=== PATIENT | male | born 1995 | race Caucasian/White ===

== ENCOUNTER → 2017-01-19 | Outpatient (CLI) | payer BC, OTHER ==
[~2017-01-19] MED LIST: OMEP20TA PO; SERT-234 PO
== END | disposition home or self-care (01) ==
LOC: C.RDSM 08:30
PROVIDERS: ATTEND Orthopaedic Surgery Sports Medicine
DX: M79.671 Pain in right foot (principal)

== ENCOUNTER → 2017-04-13 | Outpatient (CLI) | payer BC, OTHER ==
--- NOTE | 2017-04-13 12:03 | DIAGNOSTIC IMAGING REPORT ---
RIGHT FOOT MIN 3 VIEWS CLINICAL HISTORY: Persistent right great toe pain. COMPARISON: Right foot radiographs January 19, 2017. FINDINGS: Tarsometatarsal joints are intact. There is no acute fracture. Joint spaces are preserved. There are no erosions. There is moderate soft tissue swelling along the medial aspect of the right first metatarsophalangeal joint. This is increased since prior exam. No osseous lesion is identified. IMPRESSION: 1. Moderate nonspecific soft tissue swelling along the medial aspect of the right first metatarsophalangeal joint. 2. Otherwise, unremarkable right foot radiographs. Electronically signed by: Bandar Gonzales M.D. 04/13/2017 12:01 PM Dictated Date/Time: 04/13/2017 11:57 AM
== END | disposition home or self-care (01) ==
LOC: C.RDSM 13:29
PROVIDERS: ATTEND Family Medicine
DX: M79.671 Pain in right foot (principal); M79.89 Other specified soft tissue disorders

== ENCOUNTER → 2017-05-03 | Outpatient (CLI) | payer BC, OTHER ==
--- NOTE | 2017-05-03 16:13 | DIAGNOSTIC IMAGING REPORT ---
RIGHT FOOT MIN 3 VIEWS CLINICAL HISTORY: 21 years-old Male presenting with RIGHT 5TH METATARSAL STRESS FX Right. TECHNIQUE: Frontal, oblique, and lateral views of the right foot were obtained. COMPARISON: 04/13/2017. FINDINGS: No acute fracture, malalignment, or radiopaque foreign body. No sclerosis or other abnormality within the fifth metatarsal to suggest stress reaction. No significant soft tissue swelling. IMPRESSION: No acute osseous injury of the foot. Electronically signed by: Moses Mittal M.D. 05/03/2017 4:12 PM Dictated Date/Time: 05/03/2017 4:11 PM
== END | disposition home or self-care (01) ==
LOC: C.RDSM 15:39
PROVIDERS: ATTEND Family Medicine Sports Medicine
DX: M77.41 Metatarsalgia, right foot (principal); M84.374A Stress fracture, right foot, initial encounter for fracture; X58.XXXA Exposure to other specified factors, initial encounter

== ENCOUNTER 2017-06-26 02:02 | Emergency (ER) | payer BC, OTHER ==
[~2017-06-26] VITALS: Ht 185.4 cm; Wt 87.4 kg
[2017-06-26 02:03] VITALS: TEMP 36.7; Ht 185.4 cm; Wt 87.4 kg
[2017-06-26] MEDS ORDERED: GI COCKTAIL PO STA (02:20)
--- NOTE | 2017-06-26 02:23 | EMERGENCY ROOM VISIT NOTE ---
History Report prepared by Heavenly: Venkat Marques Under the Supervision of: Dr. Virgilio Blackwell M.D. First contact with patient: 02:06 Chief Complaint: CHEST PAIN Stated Complaint: CHEST PAIN History of Present Illness The patient is a 22 year old male who presents to the Emergency Room with complaints of persistent mid-chest pain that started around an hour ago. He says that he woke up with the pain, and the pain was severe and went into his back. He states that the pain is slightly better now sitting here. The patient notes that he got nervous about the pain, and got a bit nauseous. He says that he has never had anything like this before. The patient adds that he takes Sertraline, and it sometimes upsets his stomach, but never anything like this before. He says that he took 3 Tums prior to arrival. He adds that he ate subs for dinner, and took Creatinine today for the first time in a week and a half. He says that he had 3 or 4 beers yesterday, and 1 beer tonight. The patient denies any vomiting, injury, falls, or metallic tastes in his mouth. Source of History: patient Onset: Around an hour ago Position: chest Symptom Intensity: severe Timing: other (persistent) Associated Symptoms: + nausea, + back pain, No vomiting Note: Associated symptoms: Got nervous. Denies injury, falls, metallic tastes in mouth. Review of Systems See HPI for pertinent positives & negatives. A total of 10 systems reviewed and were otherwise negative. Past Medical & Surgical Medical Problems: (1) On SSRI therapy Surgical Problems: (1) H/O arthroscopy of left knee Family History FHx: heart disease Social History Smoking Status: Never Smoker Marital Status: single Housing Status: lives with roommate Occupation Status: student Current/Historical Medications Scheduled Omeprazole (Omeprazole), 1 TAB PO DAILY Sertraline (Zoloft), 100 MG PO DAILY Allergies Coded Allergies: No Known Allergies (Unverified , 06/26/17) Physical Exam Vital Signs Date Time Temp Pulse Resp B/P (MAP) Pulse Ox O2 Delivery O2 Flow Rate FiO2 06/26/17 04:08 68 16 97 06/26/17 04:01 121/67 06/26/17 03:53 56 16 97 06/26/17 03:38 61 20 96 06/26/17 03:31 127/75 9/18/17 03:23 54 16 96 06/26/17 03:18 116/73 06/26/17 03:07 55 17 96 06/26/17 02:52 56 17 96 06/26/17 02:37 60 15 96 06/26/17 02:32 61 14 97 Room Air 06/26/17 02:31 126/84 06/26/17 02:21 61 06/26/17 02:14 138/79 06/26/17 02:03 36.7 62 20 169/83 98 Room Air Physical Exam GENERAL: Patient is anxious appearing and in minimal distress. HEENT: No acute trauma, normocephalic atraumatic, mucous membranes moist, no nasal congestion, no scleral icterus. NECK: No stridor, no adenopathy, no meningismus, trachea is midline. LUNGS: No dyspnea. Clear to auscultation and equal bilaterally. No wheeze, no rhonchi. HEART: Regular rate and rhythm. No murmurs, rubs, gallops appreciated. ABDOMEN: Soft, nontender, bowel sounds positive, no masses appreciated, no peritonitis. BACK: No midline tenderness, no CVA tenderness EXTREMITIES: Normal motion all extremities, no cyanosis, no edema. NEUROLOGIC: Alert and oriented, no acute motor or sensory deficits, no focal weakness, cranial nerves grossly intact. SKIN: No rash, no jaundice, no diaphoresis. Medical Decision & Procedures ER Provider Diagnostic Interpretation: X ray results are stated below per my interpretation: Chest: 1 view: No infiltrate, no effusion, normal cardiac border. Laboratory Results 06/26/17 02:10 Red Blood Count 5.09, Mean Corpuscular Volume 88.8, Mean Corpuscular Hemoglobin 31.2, Mean Corpuscular Hemoglobin Concent 35.2, Mean Platelet Volume 9.5, Neutrophils (%) (Auto) 49.4, Lymphocytes (%) (Auto) 32.8, Monocytes (%) (Auto) 7.0, Eosinophils (%) (Auto) 9.7, Basophils (%) (Auto) 0.6, Neutrophils # (Auto) 4.04, Lymphocytes # (Auto) 2.68, Monocytes # (Auto) 0.57, Eosinophils # (Auto) 0.79, Basophils # (Auto) 0.05 06/26/17 02:10 Test 06/26/17 02:10 White Blood Count 8.17 K/uL (4.8-10.8) Red Blood Count 5.09 M/uL (4.7-6.1) Hemoglobin 15.9 g/dL (14.0-18.0) Hematocrit 45.2 % (42-52) Mean Corpuscular Volume 88.8 fL (80-100) Mean Corpuscular Hemoglobin 31.2 pg (25-34) Mean Corpuscular Hemoglobin Concent 35.2 g/dl (32-36) Platelet Count 215 K/uL (130-400) Mean Platelet Volume 9.5 fL (7.4-10.4) Neutrophils (%) (Auto) 49.4 % Lymphocytes (%) (Auto) 32.8 % Monocytes (%) (Auto) 7.0 % Eosinophils (%) (Auto) 9.7 % Basophils (%) (Auto) 0.6 % Neutrophils # (Auto) 4.04 K/uL (1.4-6.5) Lymphocytes # (Auto) 2.68 K/uL (1.2-3.4) Monocytes # (Auto) 0.57 K/uL (0.11-0.59) Eosinophils # (Auto) 0.79 K/uL (0-0.5) Basophils # (Auto) 0.05 K/uL (0-0.2) RDW Standard Deviation 39.0 fL (36.4-46.3) RDW Coefficient of Variation 12.2 % (11.5-14.5) Immature Granulocyte % (Auto) 0.5 % Immature Granulocyte # (Auto) 0.04 K/uL (0.00-0.02) D-Dimer < 190 ug/L FEU (0-500) Anion Gap 7.0 mmol/L (3-11) Est Creatinine Clear Calc Drug Dose 100.7 ml/min Estimated GFR () 89.8 Estimated GFR (Non- 77.5 BUN/Creatinine Ratio 17.2 (10-20) Calcium Level 8.8 mg/dl (8.5-10.1) Total Bilirubin 0.3 mg/dl (0.2-1) Direct Bilirubin mg/dl (0-0.2) Aspartate Amino Transf (AST/SGOT) U/L (15-37) Alanine Aminotransferase (ALT/SGPT) 36 U/L (12-78) Alkaline Phosphatase 54 U/L (45-117) Troponin I < 0.015 ng/ml (0-0.045) Total Protein 7.2 gm/dl (6.4-8.2) Albumin 3.9 gm/dl (3.4-5.0) Lipase 110 U/L (73-393) Laboratory results as reviewed by me. Medications Administered Medications (Trade) Dose Ordered Sig/Nadya Route Start Time Stop Time Status Last Admin Dose Admin Miscellaneous Medication (Gi Cocktail) 24 ml NOW STAT PO 06/26/17 02:20 06/26/17 02:22 DC 06/26/17 02:20 24 ML Ranitidine HCl (zANTac SYRUP) 150 mg NOW ONCE PO 06/26/17 02:30 06/26/17 02:31 DC 06/26/17 02:30 150 MG Sodium Chloride 1,000 ml @ 999 mls/hr Q1H1M STAT IV 06/26/17 03:27 06/26/17 04:27 DC 06/26/17 03:41 999 MLS/HR ECG Indication: chest pain Rate (beats per minute): 59 Rhythm: sinus bradycardia Findings: no acute ischemic change, no ectopy ED Course 0216: The patient was evaluated in room A10. A complete history and physical exam was performed. 0220: Ordered GI Cocktail 24 ml PO. 0230: Ordered Zantac Syrup 150 mg PO. 0327: Ordered NSS 1000 ml @ 999 mls/hr IV. 0330: I reevaluated the patient and he is feeling better. He requested that I call his father who is an internal medicine doctor in [facility]. 0340: I discussed the patient with his father who agrees with the plan for fluid hydration and outpatient follow-up, in addition to repeat kidney function testing. 0405: I reevaluated the patient and he is resting comfortably. The patient verbally expressed understanding and agreement of the treatment plan. The patient will be discharged. Medical Decision Differential: Gastritis/PUD, Pericarditis, Cholecystitis, Gallbladder disfunction, Hepatic Disfunction, Pancreatitis, ACS, Aortic Pathology, amongst other pathologies entertained. 22 yr old male arrives with complaint of what sounds much like reflux symptoms. Beer, hoagies, and work-up supplements likely cause and he notes he has mild symptoms like this in past. Much improved with GI cocktail as well. CXR clear , ekg normal, trop negative. No clear evidence of pericarditis. No muscle aches to go with rhabdo though he is a bit dehydrated with mild Cr elevation for age. Given IV fluids for this and Case Management will help set up outpatient follow up for repeat labs in 1 week. Hemolyzed K but I feel reasonable that symptoms are not due to hyperKalemia. Lipase and LFTs normal. No evidence this would be aortic in nature. Symptoms not consistent with GB disease. Reviewed symptoms requiring return. Will start on PPI. Medication Reconcilliation Current Medication List: was personally reviewed by me Blood Pressure Screening Patient's blood pressure: Normal blood pressure Impression Primary Impression: Substernal discomfort Additional Impressions: GERD (gastroesophageal reflux disease) Dehydration Renal insufficiency Scribe Attestation The scribe's documentation has been prepared under my direction and personally reviewed by me in its entirety. I confirm that the note above accurately reflects all work, treatment, procedures, and medical decision making performed by me. Departure Information Dispostion Home / Self-Care Prescriptions Omeprazole (OMEPRAZOLE) 20 Mg Tab 1 TAB PO DAILY for 30 Days, #30 TAB 1 Refill Prov: Virgilio Blackwell M.D. 06/26/17 Referrals Michael Shaffer M.D. (PCP) Patient Instructions My [facility] Additional Instructions Your kidney function was mildly elevated consistent with some renal insufficiency: BUN 22, Cr 1.3. Continue to keep well hydrated. Avoid NSAID medications (ibuprofen, advil, aleve, motrin, etc). Tylenol is fine. Avoid spicy foods, alcohol, tomato based products, chocolate, and coffee/energy drinks. You should stop taking any lifting supplements for the mean time as these can worsen kidney function. Return if rapid worsening pain, fevers, difficulty breathing, passing out or other concerns. Use anti-acid (omeprazole 20mg tab) twice daily for next 10 days, then once daily. Follow up with Clinic in 1 week for repeat kidney function testing. Problem Qualifiers
[2017-06-26] MEDS ORDERED: ALUMINUM/MAGNESIUM SUSP 30 ML UDC ONE (02:27)
[2017-06-26] MEDS ORDERED: LIDOCAINE HCL 2% VISC SOLN 20 ML UDC ONE (02:28)
[2017-06-26 02:29] LABS: BASO % 0.6 %; BASO ABS # 0.05 K/uL (0-0.2); COMPLETE YES; EOS % 9.7 %; HEMATOCRIT 45.2 % (42-52); IG% 0.5 %; LYMPH % 32.8 %; LYMPH ABS # 2.68 K/uL (1.2-3.4); MEAN CELL VOLUME 88.8 fL (80-100); MEAN CORPUSCULAR HEMOGLOBIN 31.2 pg (25-34); MEAN CORPUSCULAR HGB CONC 35.2 g/dl (32-36); MEAN PLATELET VOLUME 9.5 fL (7.4-10.4); NEUT % 49.4 %; PLATELET COUNT 215 K/uL (130-400); RED BLOOD COUNT 5.09 M/uL (4.7-6.1); WHITE BLOOD COUNT 8.17 K/uL (4.8-10.8)
[2017-06-26] MEDS ORDERED: RANITIDINE HCL SYRUP 150 MG/10 ML UDC PO ONE (02:30)
[2017-06-26] MEDS ORDERED: SERT-234 PO (02:34)
[2017-06-26 03:17] LABS: ALKALINE PHOSPHATASE 54 U/L (45-117); ALT/SGPT 36 U/L (12-78); BLOOD UREA NITROGEN 22 mg/dl (7-18); BUN/CREATININE RATIO 17.2 (10-20); CALCIUM 8.8 mg/dl (8.5-10.1); CARBON DIOXIDE 29 mmol/L (21-32); CHLORIDE 105 mmol/L (98-107); GLUCOSE 100 mg/dl (70-99); SODIUM 141 mmol/L (136-145)
[2017-06-26] MEDS ORDERED: SODIUM CHLORIDE 0.9% 1000ML 1,000 ML IV STA (03:27)
[2017-06-26] MEDS ORDERED: OMEP20TA PO (03:51)
[2017-06-26 04:01] VITALS: BP 121/67
[2017-06-26 04:08] VITALS: PULSE 68; O2SAT 97
--- NOTE | 2017-06-26 06:23 | DIAGNOSTIC IMAGING REPORT ---
CHEST ONE VIEW PORTABLE CLINICAL HISTORY: Chest Pain pain COMPARISON STUDY: No previous studies for comparison. FINDINGS: The bones soft tissues and hemidiaphragms are normal. The cardiomediastinal silhouette is normal. The lungs are clear. The pulmonary vasculature is normal. IMPRESSION: Negative chest. The above report was generated using voice recognition software. It may contain grammatical, syntax or spelling errors. Electronically signed by: Te Barnard M.D. 06/26/2017 6:21 AM Dictated Date/Time: 06/26/2017 6:21 AM
== END 2017-06-26 04:11 | disposition home or self-care (01) ==
LOC: C.EDB 02:04 → C.EDA 04:11
DX: R07.2 Precordial pain (principal); K21.9 Gastro-esophageal reflux disease without esophagitis; E86.0 Dehydration; N28.9 Disorder of kidney and ureter, unspecified; Z79.899 Other long term (current) drug therapy

== ENCOUNTER → 2017-09-25 | Outpatient (CLI) | payer BC | END | disposition home or self-care (01) | LOC: C.RDSM 13:15 | PROVIDERS: ATTEND Physical Medicine & Rehabilitation Sports Medicine | DX: M79.676 Pain in unspecified toe(s) (principal) ==

== ENCOUNTER → 2017-10-05 | Outpatient (CLI) | payer BC, OTHER ==
--- NOTE | 2017-10-05 17:40 | DIAGNOSTIC IMAGING REPORT ---
MRI RIGHT FOREFOOT WITHOUT IV CONTRAST CLINICAL HISTORY: First toe pain. COMPARISON STUDY: Radiographs of the right first toe dated 09/25/2017. TECHNIQUE: MRI of the right forefoot is performed utilizing various T1 and T2-weighted sequences in the axial, sagittal, and coronal planes. IV contrast was not administered for this examination. FINDINGS: There is mild marrow edema identified within the medial sesamoid at the first metatarsophalangeal joint. There is minimal surrounding soft tissue edema. Normal marrow signal intensity is otherwise preserved throughout the visualized bony structures. No other foci of marrow edema are identified and there is no evidence of fracture. The joint spaces of the forefoot are preserved. There is no evidence of Lisfranc injury. The visualized flexor and extensor tendons appear intact. The regional musculature is normal in bulk and signal intensity. IMPRESSION: 1. There is mild marrow edema seen within the medial sesamoid at the first metatarsophalangeal joint. Correlate clinically for evidence of sesamoiditis. 2. No additional bony abnormality is seen. The remaining bony structures demonstrate normal marrow signal intensity. Electronically signed by: Ivan Dang M.D. 10/05/2017 5:38 PM Dictated Date/Time: 10/05/2017 5:34 PM
== END | disposition home or self-care (01) ==
LOC: C.MRI 16:37
PROVIDERS: ATTEND Physical Medicine & Rehabilitation Sports Medicine
DX: M79.674 Pain in right toe(s) (principal)

== ENCOUNTER → 2017-10-16 | Outpatient (CLI) | payer BC, OTHER ==
[~2017-10-16] MED LIST changes: +HYDR-5688 PO; -OMEP20TA PO
--- NOTE | 2017-10-16 09:51 | DIAGNOSTIC IMAGING REPORT ---
L FOOT MIN 3 VIEWS CLINICAL HISTORY: TURF TOE pain COMPARISON: None. DISCUSSION: The bones and joint spaces appear intact. There is no evidence of fracture, dislocation or bony disease. There is no evidence for soft tissue swelling. Toes are held in flexion. IMPRESSION: Toes are held in flexion. This may be positional. No acute bony abnormality. The above report was generated using voice recognition software. It may contain grammatical, syntax or spelling errors. Electronically signed by: Te Barnard M.D. 10/16/2017 9:49 AM Dictated Date/Time: 10/16/2017 9:46 AM
--- NOTE | 2017-10-16 09:57 | DIAGNOSTIC IMAGING REPORT ---
R FOOT MIN 3 VIEWS CLINICAL HISTORY: Right first toe pain. COMPARISON STUDY: Right foot 05/03/2017. FINDINGS: 2 views of the right foot with a standing AP view of the bilateral feet. Mild asymmetric soft tissue swelling at the right first MTP joint. This is slightly improved. The sesamoid bones at the head of the first metatarsals are symmetric. Cartilage spaces are maintained. No acute fracture or dislocation. The Lisfranc joints are intact. IMPRESSION: 1. Soft tissue swelling at the right first MTP joint which has slightly improved. 2. No fracture or dislocation within the right foot. 3. Symmetric sesamoid bones at the first metatarsals. Electronically signed by: Jun Castillo M.D. 10/16/2017 9:56 AM Dictated Date/Time: 10/16/2017 9:53 AM
== END | disposition home or self-care (01) ==
LOC: C.RDSM 08:00
PROVIDERS: ATTEND Physician Assistant
DX: S93.529A Sprain of metatarsophalangeal joint of unspecified toe(s), initial encounter (principal); X58.XXXA Exposure to other specified factors, initial encounter; M79.9 Soft tissue disorder, unspecified

== ENCOUNTER → 2017-10-19 | Day surgery (SDC) | payer BC, OTHER ==
[2017-10-12 14:41] VITALS: Ht 185.4 cm; Wt 87.7 kg
[~2017-10-19] VITALS: Ht 185.4 cm; Wt 87.7 kg
[~2017-10-19] MED LIST changes: +ATROPINE SULFATE 0.1 MG/ML 5ML SYR IV PRN; +BUPIVACAINE 0.5 % 5 MG/1 ML MPF 30ML VIAL ONE; +CEFAZOLIN 2000MG IV PUSH 10 ML IV SCH; +DEXAMETHASONE SOD INJ 4 MG/ML VIAL ONE; +EpHEDrine SULFATE INJ 50 MG/ML AMP IV PRN; +FENTANYL CITRATE INJ 50 MCG/1 ML 2 ML VIAL IV PRN; +FENTANYL CITRATE INJ 50 MCG/1 ML 2 ML VIAL ONE; +LACTATED RINGER'S 1000ML 1,000 ML IV SCH; +LIDOCAINE HCL 2% 2 ML VIAL (20MG/ML) ONE; +MIDAZOLAM HCL 1 MG/ML 2ML VIAL ONE; +MoRPHine SULFATE 2 MG/ML CARP IV PRN; +MoRPHine SULFATE 4 MG/ML 1 ML CARP\\VIAL IV PRN; +ONDANSETRON INJ 2 MG/ML 2 ML VIAL IV PRN; +ONDANSETRON INJ 2 MG/ML 2 ML VIAL ONE; +OXYCODONE/ACETAMINOPHEN 5-325 TAB PO PRN; +PROPOFOL IV EMULSION 10 MG/ML 20 ML VIAL IV ONE; +SCOPOLAMINE 1.5 MG TDSY TD ONE; +SODIUM CHLORIDE 0.9% 1000ML 1,000 ML IV SCH
--- NOTE | 2017-10-19 09:56 | History & Physical Bridge Note ---
H&P Re-Evaluation Bridge Note: I have examined the patient, reviewed the History & Physical and in the interval since the performance of the History & Physical I have noted the following changes of clinical significance: No changes noted
--- NOTE | 2017-10-19 13:27 | [facility] Post Operative Brief Note ---
Immediate Operative Summary Operative Date Oct 19, 2017. Pre-Operative Diagnosis Right big toe plantar plate tear Post-Operative Diagnosis same Procedure(s) Performed Right Big Toe Plantar Plate Repair Surgeon Dr. Collado [employer] Analyst Surgeon(s) Vanessa Rivero PA-C Estimated Blood Loss 2 Findings plantar plate laxity Specimens NONE Anesthesia LMA Complication(s) None Disposition Recovery Room / PACU
--- NOTE | 2017-10-19 13:55 | Discharge Instructions-SurgCtr ---
Discharge Instructions Date of Service Oct 19, 2017. Visit Reason for Visit: Right Big Toe Plantar Plate Tear Discharge Discharge Diagnosis / Problem: right big toe plantar plate tear Discharge Goals Goal(s): Decrease discomfort, Improve function, Increase independence Activity Recommendations Activity Limitations: per Instructions/Follow-up section Weightbearing Status: Right non-weightbearing Anesthesia . Post Anesthesia Instructions: If you have had General Anesthesia or IV Sedation: * Do not drive today. * Resume driving when surgeon permits. * Do not make important decisions or sign legal documents today. * Call surgeon for: 1. Temperature elevations greater than 101 degrees F. 2. Uncontrollable pain. 3. Excessive bleeding. 4. Persistent nausea and vomiting. 5. Medication intolerance (nausea, vomiting or rash). * For nausea and vomiting use only clear liquids such as: tea, soda, bouillon until nausea subsides, then gradually increase diet as tolerated. * If you have any concerns or questions, call your surgeon's office. If physician is unavailable and it is an emergency, call 911 or go to the nearest emergency room. . Instructions / Follow-Up Instructions / Follow-Up DIET: * Resume previous diet. MEDICATIONS: * Please take your prescriptions as instructed at your pre-op appointment and/ or see medication discharge instructions listed above. * If concerns develop, call your physician's office at . SPECIAL CARE INSTRUCTIONS: * Ice to right foot as needed for pain and swelling. Apply 15-20 minutes up to 2-3 times a day. * Elevate right foot above your heart as needed for pain and swelling. * Use crutches to assist with ambulation. * Do not apply weight on your right foot. * Keep dressing clean, dry, intact. Keep splint on at all times. * NO DRIVING * It is okay for you to bend your right knee as tolerated. * Your surgical extremity may be discolored due to prepping agents used on the skin. A bluish-green tint is a normal variant and should not cause alarm. Call your doctor at [phone] if: * Temperature above 101 degrees * Pain not relieved by pain medicine ordered * There is increased drainage or redness from any incision * You have any unanswered questions, problems or concerns. FOLLOW UP VISIT: * If not already scheduled, please call the office at to schedule a follow-up appointment. * You have a follow-up scheduled with Dr. Collado on 11/01/2017 at 1:15 PM. Diet Recommendations Home Diet: no limitations, resume previous diet Procedures Procedures Performed: Right Big Toe Plantar Plate Repair Pending Studies Studies pending at discharge: no Medical Emergencies . Who to Call and When: Medical Emergencies: If at any time you feel your situation is an emergency, please call 911 immediately. . Non-Emergent Contact Non-Emergency issues call your: Surgeon Call Non-Emergent contact if: temperature is above 101, your pain is not controlled, your pain is worsening, your pain is unusual for you, wound has increased drainage, wound has increased redness, wound has increased pain, you have any medication questions . . "Provider Documentation" section prepared by Cherry Reis. . [place] Drug Monitoring Program Search Results: patient reviewed within database, no issues identified
--- NOTE | 2017-10-19 13:58 | [facility] Operative Report ---
Operative Report Operative Date Oct 19, 2017. Pre-Operative Diagnosis Right big toe plantar plate tear Post-Operative Diagnosis same Procedure(s) Performed Right Big Toe Plantar Plate Repair Surgeon Dr. Collado [employer] Designer Surgeon(s) Vanessa Rivero PA-C Estimated Blood Loss 2 Findings Plantar plate tear right great toe Specimens NONE Drains none Anesthesia LMA Complication(s) None Disposition Recovery Room / PACU Indications Patient is a 22-year-old male with a history of right great toe injury while playing rugby. Injury happened approximately year ago. X-rays were taken and was found no bony abnormality. He continued to have pain. An MRI was obtained and found to have a possible plantar plate tear. Due to the failure of conservative treatment surgical intervention was recommended. He agreed to proceed with surgery. Risks and complications were discussed. Informed consent was obtained. Description of Procedure Patient was taken to the operating room and placed under general anesthesia. He was given 2 g of IV Ancef for surgical prophylaxis. Timeout was performed. He was prepped and draped in routine sterile fashion. I was present during the entire case, please see Dr. Collado's operative report for further detail. He was awakened and transferred to recovery room in stable condition. I attest to the content of the Intraoperative Record and any orders documented therein. Any exceptions are noted below.
--- NOTE | 2017-10-19 14:33 | OPERATIVE REPORT ---
DATE OF OPERATION: 10/19/2017 PREOPERATIVE DIAGNOSIS: Right foot great toe plantar plate injury. POSTOPERATIVE DIAGNOSIS: Same. PROCEDURE: Right foot big toe plantar plate repair. SURGEON: Dr. Moses Collado. SPORTS INTERN: Cherry Reis, physician speech and language assistant and Reynaldo Rodriguez, fellow. ANESTHESIA: Laryngeal mask. INDICATIONS FOR PROCEDURE: The patient is a 22-year-old male who is about 9 months out from a turf toe injury to the right big toe, treated nonoperatively. He has experienced symptoms relative to increased laxity of the plantar plate such as decreased push off strength and pain. His x-rays are unremarkable. An MRI shows what looks like healing of the distal plantar plate injury. He has a markedly positive Steven maneuver and has failed conservative treatment. Treatment options, risks and benefits were discussed and he elected to proceed with operative intervention. PROCEDURE IN DETAIL: Informed consent was obtained. The patient was identified as Michael Shaffer. He identified the operative site as the right big toe, which I marked with my initials. A preop surgical time out was performed. A preop dose of IV antibiotics was given. He was taken to the operating room, positioned supine on the operating room table and a laryngeal mask anesthetic was administered. DVT prophylaxis will be done with early patient mobility. A tourniquet was applied to the right thigh. The leg was prepped and draped in the usual sterile fashion. Examination preoperatively showed a markedly positive Steven. He did not have any significant increase in varus or valgus laxity on stressing of the toe. He did not have any increased plantar flexion. He had about 15-30 degrees of increased dorsiflexion compared to the contralateral side. There was some skin discoloration dorsally from a little cortisone shot. Fluoroscopic images in neutral and dorsiflexion. Lateral views were obtained. It did show that the sesamoids moved with the proximal phalanx. It did show that there was subluxation dorsally with stress. The limb was exsanguinated with the Esmarch, tourniquet inflated to 250 mmHg. A longitudinal medial incision was made at the junction of the middle and posterior thirds of the medial portion of the metatarsophalangeal joint. The incision was then curved distally into the metatarsophalangeal joint flexion crease. The skin was incised followed by blunt dissection down to the subcutaneous tissues. The first thing that was done was identification of the medial plantar nerve, which was identified and the soft tissue envelope dissected out distally and proximally, but left within the envelope centrally. The nerve was mobilized proximally and distally and preserved for further protection. Blunt dissection was utilized plantarly underneath the plantar plate and proximal phalanx. I then identified the flexor hallucis longus tendon, opened up the sheath just to the proximal portion of the sesamoids and retracted it plantarly out of the way. An incision was then made between the flexor hallucis brevis and abductor hallucis tendon along the medial plantar border of the plantar plate just dorsal to the tibial sesamoid. This was carried down to the proximal phalanx. This tissue had notable proximal and distal laxity. It was attached securely proximally, but distally, there appeared to be some granulation tissue and evidence of an old injury. I noted where the tissue attached, so that I would be sure to advance it. The tissue was then dissected off of the proximal phalanx over to the lateral portion of the bone under direct visualization. The sesamoids looked normal. Granulation tissue was debrided. The base of the proximal phalanx was prepared with a curette and rongeur. I then palpated and marked the location medially and laterally for the anchors and identified the central portion where the tendon lay. The anchors were placed equal distant on either side. Two 1.4 and 5 rigid JuggerKnot anchors were inserted, taking care to maintain the ankle within the bone. The ankle was receded and slid well. The stitches were then passed just at the distal extent of the sesamoid bones in a horizontal mattress fashion just distal to the tibial and fibular sesamoids.The sutures were then passed just distal to the tibial and fibular sesamoids. The wound was irrigated with sterile saline. The metatarsal head looked normal as did the proximal phalanx. The proximal phalanx was held in neutral rotation varus and valgus was placed in about 20-30 degrees plantarflexion. The plantar plate was reduced and the sutures were tied in a tension free fashion. This resulted in about 15-20 degrees of plantar flexion at the MTP joint. The Steven maneuver was eliminated and the proximal and distal laxity in the plantar plate was eliminated. The tourniquet was let down and there was no significant bleeding. Meticulous hemostasis was performed. The medial capsular incision was repaired using 0 Vicryl in an interrupted fashion. The skin was then closed with 4-0 nylon. 0.5% Marcaine was injected for an ankle block, anterior and medial. A incisional block was also performed. The leg was cleaned with wet and dry sponges and the ankle was placed into a well-padded foot dressing with a posterior splint the ankle was in neutral. The split extended beyond the toes and the big toe was allowed to be in resting plantar flexion. Care was taken to prevent dorsiflexion of the big toe. The patient was then awakened from anesthesia without difficulty and taken to recovery in stable condition. There were no specimens or complications. Counts were correct at the end of the case. Blood loss was minimal. At the conclusion of the operation, there was noone available to speak to. He will be nonweightbearing and will be immobilized for the time being. He will follow up with me in 2 weeks for wound check suture removal. I attest to the content of the Intraoperative Record and any orders documented therein. Any exceptions are noted below. CANDY
[2017-10-19 14:34] VITALS: TEMP 36.8
--- NOTE | 2017-10-19 14:43 | Anesthesia Progress Nt - [facility] ---
Anesthesia Post Op Note Date & Time Oct 19, 2017 at 14:42 Vital Signs Pain Intensity: 2 Vital Signs Past 12 Hours Date Time Temp Pulse Resp B/P (MAP) Pulse Ox O2 Delivery O2 Flow Rate FiO2 10/19/17 14:34 36.8 62 16 119/72 (88) 97 Room Air 10/19/17 14:25 128/73 10/19/17 14:23 62 15 10/19/17 14:23 62 15 96 10/19/17 14:22 36.9 60 12 136/80 97 Room Air 10/19/17 14:22 62 17 97 10/19/17 14:22 63 17 10/19/17 14:20 136/80 10/19/17 14:17 70 15 98 10/19/17 14:17 69 15 10/19/17 14:15 129/78 10/19/17 14:12 65 22 10/19/17 14:12 65 22 98 10/19/17 14:10 126/67 10/19/17 14:07 64 20 10/19/17 14:07 64 20 98 10/19/17 14:05 124/67 10/19/17 14:02 65 11 100 10/19/17 14:02 63 11 10/19/17 14:00 130/67 10/19/17 13:57 58 4 10/19/17 13:57 57 4 100 10/19/17 13:55 129/71 10/19/17 13:52 65 16 100 10/19/17 13:52 65 16 10/19/17 13:50 128/75 10/19/17 13:47 36.9 70 16 122/65 99 Mask 6 10/19/17 13:47 71 13 10/19/17 13:47 72 13 122/65 100 10/19/17 09:39 36.8 65 16 127/81 (96) 96 Room Air Notes Mental Status: alert / awake / arousable, participated in evaluation Pt Amnestic to Procedure: Yes Nausea / Vomiting: adequately controlled Pain: adequately controlled Airway Patency, RR, SpO2: stable & adequate BP & HR: stable & adequate Hydration State: stable & adequate Anesthetic Complications: no major complications apparent
[2017-10-19 15:05] VITALS: BP 120/71; PULSE 52; O2SAT 97
== END | disposition home or self-care (01) ==
LOC: X.SURG 09:04
PROVIDERS: ATTEND Physical Medicine & Rehabilitation Sports Medicine
DX: S93.521A Sprain of metatarsophalangeal joint of right great toe, initial encounter (principal); X50.0XXA Overexertion from strenuous movement or load, initial encounter; Y93.63 Activity, rugby; Y92.214 College as the place of occurrence of the external cause; F41.9 Anxiety disorder, unspecified; F32.9 Major depressive disorder, single episode, unspecified; Z79.899 Other long term (current) drug therapy